=== PATIENT | female | born 1985 | race Caucasian/White ===

== ENCOUNTER 2017-12-07 21:57 | Emergency (ER) | payer BC, OTHER ==
[2017-12-07 22:17] VITALS: BP 139/76; BMI 42.0
--- NOTE | 2017-12-07 23:19 | DR.GENAD ---
HPI - PCP Primary Care Physician: val - HPI Comment HPI Comment: NO FEVER. WORSE TONIGHT. NO DRAINAGE. - Complaint/Symptoms Chief Complaint Doctors Comments: ABSCESS AND CELLULITIS LT BUTTOCKS RADIATING TO LEGS AND BACK TIMES 3 DAYS. Chief Complaint:: RISEN ON THE TOP OF "BUTTCRACK" LEFT SIDE, BACK AND LEFT LEG PAIN WORRIES ABOUT INFECTION SPREADING. Self Treatment fo Chief Complaint: ALOE - Nurses notes reviewed Nurses Notes Review: Yes - Source History Provided: Patient - Mode of Arrival Mode of Arrival: Ambulatory - Timing Onset of Chief Complaint: 12/04/17 Came on: Suddenly - Duration Duration: Constant Duration: Days - Severity Severity: Moderate PMH - PMH Past Medical History: No Past Surgical History: Yes Surgical History: Cholecystectomy Past Surgical History Comment: 2 C SECTIONS - Family History History of Family Medical Conditions: No - Social History Does patient currently use any type of tobacco product: Yes Have you used tobacco products in the last 12 months: Yes Type of Tobacco Use: Cigarettes Does any household member use tobacco: No Alcohol Use: None Do you use any recreational Drugs:: No Lives With: Spouse Lives Where: Home - infectious screening In the last 2 months have you had wt loss of >10#?: NO Have you had fever, night sweats or hemotysis?: No Have you traveled outside the country in the last 6 months?: No Isolation: Standard ROS - Review of Systems Constitutional: No Symptoms Reported Eyes: No Symptoms Reported ENTM: No Symptoms Reported Respiratoy: No Symptoms Reported Cardiovascular: No Symptoms Reported Gastrointestinal/Abdominal: No Symptoms Reported Genitourinary: No Symptoms Reported Neurological: No Symptoms Reported Musculoskeletal: No Symptoms Reported Integumentary: Change in Color, Wound (ABSCESS AND CELLULITIS LT BUTTOCKS. NO DRAINAGE.) Hematologic/Lymphatic: No Symptoms Reported Endocrine: No Symptoms Reported All Other Systems: Reviewed and Negative PE - Vital Signs Vitals: Temperature 98.0 F Pulse Rate 107 Respiratory Rate 18 Blood Pressure 139/76 O2 Sat by Pulse Oximetry 97 - General Limitations: No Limitations General Appearance: Alert - Head Head Exam: Normal Inspection - Eyes Eye exam: Normal Appearance - ENT ENT Exam: Normal External Ear Exam External Ear Exam: Normal External Inspection TM/Canal Exam: Bilateral Normal Nose Exam: Normal Nose Exam Mouth Exam: Normal Inspection Throat Exam: Normal Inspection - Neck Neck Exam: Trachea Midline - Chest Chest Inspection: Symmetric Chest Wall Rise - Respiratory Respiratory Exam: Normal Lung Sounds Bilat Respiratory Exam: Bilateral Clear to Auscultation - Cardiovascular Cardiovascular Exam: Regular Rate, Normal Rhythm, Normal Heart Sounds - Abdominal Exam Abdominal Exam: Normal Inspection - Extremities Extremities Exam: Normal Inspection - Back Back Exam: Normal Inspection - Neurologic Neurological Exam: Alert, Oriented X3 - Psychiatric Psychiatric Exam: Normal Affect, Normal Mood - Skin Skin Exam: Erythema (ABSCESS AND CELLULITIS LT BUTTOCKS) MDM - Differential Diagnosis Differential Diagnosis: ABSCESS LT BUTTOCK, CELLULITIS LEFT BUTTOCKS Course - Treatment Treatment: SEE ORDERS. - Education/Counseling Education/Counseling: Patient, Education Educated On: Treatment, Diagnosis, Needs for Follow Up - Diagnosis Discharge Problem: Abscess of buttock, left - Discharge Plan Condition: Stable Prescriptions: Ibuprofen [MOTRIN TAB 800 MG *] 800 mg PO Q8H PRN #30 tab PRN Reason: Pain/Inflammation Mupirocin Calcium Cream [BACTROBAN CREAM 2%] 1 applic EXT BID #15 gm Sulfamethoxazole-Trimethoprim [BACTRIM DS TAB 800/160 MG *] 1 tab PO BID #20 tab - Follow ups/Referrals Follow ups/Referrals: ISIS GROVES [Primary Care Provider] - 2 days - Instructions Instructions: Cellulitis, Adult, [id number], Skin Abscess, [id number] Additional Instructions: RETURN TO ED IF WORSE.
[2017-12-07] MEDS ORDERED: BACTRIM DS TAB PO ONE ×2 (23:20→23:24)
[2017-12-07] MEDS ORDERED: TORADOL TAB PO ONE ×2 (23:20→23:24)
== END 2017-12-07 23:23 | disposition home or self-care (01) ==
LOC: ER 22:10
DX: L02.31 Cutaneous abscess of buttock (principal)
CPT/HCPCS: 99282